=== PATIENT | female | born 1995 | race Caucasian/White ===

== ENCOUNTER 2019-03-31 10:35 | Inpatient (IN) ==
[2019-03-31] MEDS ORDERED: Metoclopramide 10 MG/2 ML VIAL IVP PRN (10:46)
[2019-03-31] MEDS ORDERED: *HR* Nalbuphine 10 MG/ML AMPUL IVP PRN (10:46)
[2019-03-31] MEDS ORDERED: Famotidine 20 MG/2 ML VIAL IVP PRN (10:46)
[2019-03-31] MEDS ORDERED: Naloxone 0.4 MG/ML INJ IVP PRN (10:46)
[2019-03-31] MEDS ORDERED: Azithromycin 500 MG in 0.9 % Sodium Chloride 250 ML IVPB PRN (10:47)
[2019-03-31] MEDS ORDERED: Ondansetron 4 MG/2 ML VIAL IVP PRN (10:47)
[2019-03-31] MEDS ORDERED: Lidocaine 1% 20 ML MDV INFILT PRN (10:47)
[2019-03-31] MEDS ORDERED: Oxytocin 20 units/ LR 1000 mL 20 UNIT/1,000 ML BAG IVC SCH (11:00)
[2019-03-31] MEDS ORDERED: Ringers Solution, Lactated 1,000 ML IVC SCH (11:00)
[2019-03-31 11:31] LABS: Basophils # 0.1 K/mcL (0.0-0.2); Basophils % 0.6 %; Eosinophils % 0.3 %; Immature Granulocytes % 1.9 % (0-4); Lymphocytes % 16.7 %; Mean Corpuscular HGB Conc 35.1 g/dL (31.6-35.5); Mean Corpuscular Hemoglobin 30.5 pg (28.0-33.3); Mean Corpuscular Volume 86.9 fL (83.0-100.0); Monocytes # 0.7 K/mcL (0.0-1.3); Monocytes % 6.1 %; Neutrophils # 8.8 K/mcL (1.6-8.9); Platelet Count 285 K/mcL (140-400); Red Blood Count 4.26 M/mcL (3.82-4.97); Red Cell Distribution Width 12.3 % (11.5-14.5); Segmented Neutrophils % 74.4 %; White Blood Count 11.9 K/mcL (4.3-11.1)
[2019-03-31 11:34] LABS: Amphetamine Screen,Urine Negative ng/mL (Cutoff=1000); Barbiturate Screen,Urine Negative ng/mL (Cutoff=200); Benzodiazepines Screen,Urine Negative ng/mL (Cutoff=200); Cannabinoid Screen,Urine Negative ng/mL (Cutoff = 50); Cocaine Screen,Urine Negative ng/mL (Cutoff= 300); Opiate Screen,Urine Negative ng/mL (Cutoff=300); Phencyclidine Screen,Urine Negative ng/mL (Cutoff=25)
[2019-04-01] MEDS ORDERED: Acetaminophen 325 MG TABLET PO PRN (02:15)
[2019-04-01] MEDS ORDERED: *HR* HYDROcodone/Acet 5/325 mg TABLET PO PRN (02:15)
[2019-04-01] MEDS ORDERED: Benzocaine/Menthol 56 GM AEROSOL SPRAY TP PRN (02:15)
[2019-04-01] MEDS ORDERED: Lanolin 7 G OINT...G. TP PRN (02:15)
[2019-04-01] MEDS ORDERED: Oxytocin 20 units/ LR 1000 mL 20 UNIT/1,000 ML BAG IVC SCH (02:15)
[2019-04-01] MEDS: Ibuprofen 600 MG TABLET PO PRN ×2 (02:51→13:16)
[2019-04-01] MEDS: Prenatal Vit/FA 1 EACH TABLET PO SCH (08:03)
[2019-04-02] MEDS: Ibuprofen 600 MG TABLET PO PRN ×3 (03:05→16:17)
[2019-04-02] MEDS: Prenatal Vit/FA 1 EACH TABLET PO SCH (07:41)
[2019-04-02 21:22] VITALS: BP 137/61
[2019-04-03] MEDS: Ibuprofen 600 MG TABLET PO PRN (01:03)
[2019-04-03] MEDS: Prenatal Vit/FA 1 EACH TABLET PO SCH (08:20)
== END 2019-04-03 16:06 | disposition home or self-care (01) | DRG 807 ==
LOC: 1NENULAB 10:35 → 1NENUOBS 04-01 03:47
PROVIDERS: ADMIT Advanced Practice Midwife; ATTEND Advanced Practice Midwife

== ENCOUNTER → 2020-09-26 19:00 | Observation (INO) ==
[2020-09-26 17:16] LABS: Clarity,Urine Clear (Clear); Color,Urine Yellow (Yellow)
[2020-09-26 17:17] LABS: Bilirubin,Urine Negative (Negative); Glucose,Urine (UA) Normal (Normal); Ketones,Urine Negative (Negative); Specific Gravity,Urine 1.011 (1.010-1.025)
[2020-09-26 17:18] LABS: Blood,Urine Moderate (Negative); PH,Urine 6.5 pH Units (5.0-8.0); Protein,Urine Negative (Neg-Trace); Urobilinogen,Urine Normal (Normal)
[2020-09-26 17:19] LABS: Leukocyte Esterase,Urine Moderate (Negative); Nitrite,Urine Negative (Negative)
[2020-09-26 17:27] LABS: Bacteria,Urine Few per hpf (None-Few); RBC,Urine 0-3 per hpf (0-3); Squamous Epithelial Cell,Urine Few per hpf (None-Few); WBC,Urine 0-3 per hpf (0-3)
[2020-09-26 19:08] LABS: Basophils # 0.1 K/mcL (0.0-0.2); Basophils % 0.7 %; Eosinophils # 0.2 K/mcL (0.0-0.6); Eosinophils % 1.4 %; Hematocrit 33.4 % (35.3-44.9); Hemoglobin 11.4 g/dL (11.5-15.4); Immature Granulocytes % 2.4 % (0-4); Lymphocytes % 17.8 %; Mean Corpuscular HGB Conc 34.1 g/dL (31.6-35.5); Mean Corpuscular Hemoglobin 31.3 pg (28.0-33.3); Mean Corpuscular Volume 91.8 fL (83.0-100.0); Mean Platelet Volume 8.6 fL (9.4-12.4); Monocytes # 0.8 K/mcL (0.0-1.3); Neutrophils # 12.3 K/mcL (1.6-8.9); Platelet Count 255 K/mcL (140-400); Red Blood Count 3.64 M/mcL (3.82-4.97); Red Cell Distribution Width 11.9 % (11.5-14.5); Segmented Neutrophils % 72.7 %; White Blood Count 16.8 K/mcL (4.3-11.1)
== END | disposition home or self-care (01) ==
LOC: 1NENULAB
PROVIDERS: ADMIT Obstetrics & Gynecology; ATTEND Obstetrics & Gynecology

== ENCOUNTER → 2020-09-29 00:55 | Observation (INO) ==
[2020-09-28 23:12] LABS: Basophils # 0.2 K/mcL (0.0-0.2); Basophils % 1.1 %; Eosinophils # 0.3 K/mcL (0.0-0.6); Eosinophils % 1.4 %; Hematocrit 41.6 % (35.3-44.9); Immature Granulocytes % 4.2 % (0-4); Lymphocytes # 3.8 K/mcL (0.6-4.6); Lymphocytes % 19.3 %; Mean Corpuscular HGB Conc 33.7 g/dL (31.6-35.5); Mean Corpuscular Hemoglobin 30.7 pg (28.0-33.3); Mean Corpuscular Volume 91.2 fL (83.0-100.0); Mean Platelet Volume 8.6 fL (9.4-12.4); Monocytes # 1.1 K/mcL (0.0-1.3); Monocytes % 5.7 %; Neutrophils # 13.6 K/mcL (1.6-8.9); Platelet Count 308 K/mcL (140-400); Red Blood Count 4.56 M/mcL (3.82-4.97); Segmented Neutrophils % 68.3 %; White Blood Count 19.9 K/mcL (4.3-11.1)
[2020-09-29 00:33] LABS: Activated Partial Thrombo Time 28.1 Seconds (26.0-36.0)
[~2020-09-29 00:55] MED LIST: Ringers Solution, Lactated 1,000 ML ONE
[2020-09-29 00:59] LABS: Basophils % 0.1 %; Eosinophils # 0.2 K/mcL (0.0-0.6); Eosinophils % 1.3 %; Hematocrit 37.3 % (35.3-44.9); Hemoglobin 12.8 g/dL (11.5-15.4); Immature Granulocytes % 4.1 % (0-4); Lymphocytes # 3.3 K/mcL (0.6-4.6); Lymphocytes % 17.9 %; Mean Corpuscular HGB Conc 34.3 g/dL (31.6-35.5); Mean Corpuscular Hemoglobin 31.3 pg (28.0-33.3); Mean Corpuscular Volume 91.2 fL (83.0-100.0); Mean Platelet Volume 8.8 fL (9.4-12.4); Monocytes # 1.2 K/mcL (0.0-1.3); Monocytes % 6.5 %; Neutrophils # 12.9 K/mcL (1.6-8.9); Platelet Count 268 K/mcL (140-400); Red Blood Count 4.09 M/mcL (3.82-4.97); Red Cell Distribution Width 11.9 % (11.5-14.5); Segmented Neutrophils % 70.1 %; White Blood Count 18.4 K/mcL (4.3-11.1)
== END | disposition short-term general hospital (02) ==
LOC: 1NENULAB
PROVIDERS: ADMIT Registered Nurse; ATTEND Registered Nurse